=== PATIENT | female | born 1990 | race African-American/Black ===

== ENCOUNTER 2016-12-26 19:55 | Emergency (ER) | payer OTHER ==
[2016-12-26 20:35] VITALS: BP 151/64
[2016-12-26] MEDS ORDERED: IBUPROFEN 600 MG TABLET. PO ONE (20:45)
[2016-12-26] MEDS ORDERED: HYDROCODONE/APAP 5/325MG TABLET. PO ONE (20:45)
--- NOTE | 2016-12-26 21:16 | PHYS DOC ---
Past Medical History Past Medical History: No Pertinent History Past Surgical History: Cholecystectomy Additional Information: 11/15 ppd Alcohol Use: Occasionally Drug Use: None Adult General Chief Complaint Chief Complaint: KNEE INJURY HPI HPI Patient is a 26 year old female presents the emergency room today with complaint of left knee pain after slip and fall approximately 1 hour prior to arrival. Patient denies any history of problems with her left knee. She denies any history of bone forming disorders. Review of Systems Review of Systems Constitutional: Denies fever or chills [] Eyes: Denies change in visual acuity, redness, or eye pain [] HENT: Denies nasal congestion or sore throat [] Respiratory: Denies cough or shortness of breath [] Cardiovascular: No additional information not addressed in HPI [] GI: Denies abdominal pain, nausea, vomiting, bloody stools or diarrhea [] : Denies dysuria or hematuria [] Musculoskeletal: Denies back pain or joint pain [] Integument: Denies rash or skin lesions [] Neurologic: Denies headache, focal weakness or sensory changes [] Endocrine: Denies polyuria or polydipsia [] Current Medications Current Medications Current Medications Medications (Trade) Dose Ordered Sig/Abbey Start Time Stop Time Status Last Admin Dose Admin Acetaminophen/ Hydrocodone Bitart (Lortab 5/325) 1 tab 1X ONCE 12/26/16 20:45 12/26/16 20:47 DC 12/26/16 20:50 1 TAB Ibuprofen (Motrin) 600 mg 1X ONCE 12/26/16 20:45 12/26/16 20:47 DC 12/26/16 20:50 600 MG Allergies Allergies Allergies Coded Allergies Type Severity Reaction Last Updated Verified No Known Drug Allergies 12/26/16 No Physical Exam Physical Exam Constitutional: Well developed, well nourished, no acute distress, non-toxic appearance. [] HENT: Normocephalic, atraumatic, bilateral external ears normal, oropharynx moist, no oral exudates, nose normal. [] Eyes: PERRLA, EOMI, conjunctiva normal, no discharge. [] Neck: Normal range of motion, no tenderness, supple, no stridor. [] Cardiovascular:Heart rate regular rhythm, no murmur [] Lungs & Thorax: Bilateral breath sounds clear to auscultation [] Abdomen: Bowel sounds normal, soft, no tenderness, no masses, no pulsatile masses. [] Skin: Warm, dry, no erythema, no rash. [] Back: No tenderness, no CVA tenderness. [] Extremities: Left knee is normal in appearance. There is no fusiform swelling or erythema. There are no overlying abrasions or skin injuries. Flexor and extensor mechanism are intact. There is no high riding patella. There is tenderness to palpation to lateral aspect of the patella and the lateral joint line. There is no palpable defect or deformity. There is no instability or crepitus. Ligaments are stable solid endpoints. Left lower extremity is neurovascular intact with capillary refill less than 2 seconds. Neurologic: Alert and oriented X 3, normal motor function, normal sensory function, no focal deficits noted. [] Psychologic: Affect normal, judgement normal, mood normal. [] Current Patient Data Vital Signs Vital Signs Date Time Temp Pulse Resp B/P Pulse Ox O2 Delivery O2 Flow Rate FiO2 12/26/16 20:35 98.3 113 18 97 Room Air 98.3 EKG EKG [] Radiology/Procedures Radiology/Procedures 3 views patient's left knee were performed with adequate technique. There is no evidence of acute process. Course & Med Decision Making Course & Med Decision Making Pertinent Labs and Imaging studies reviewed. (See chart for details) [] Dragon Disclaimer Dragon Disclaimer This electronic medical record was generated, in whole or in part, using a voice recognition dictation system. Departure Departure Impression: Primary Impression: Strain of left knee Disposition: 01 HOME, SELF-CARE Condition: GOOD Referrals: CYNTHIA CARIAS (PCP) Patient Instructions: Knee Sprain, [id number] Additional Instructions: 1. X-rays of your left knee today are normal. 2. Take the medication as prescribed. 3. Avoid deep knee bending, kneeling and squatting for the next week. 4. Review the discharge instructions provided for self-care and reasons to return to the emergency department. 5. Contact your primary care doctor's office in the morning to schedule follow- up appointment. Scripts Hydrocodone/Apap 5-325 ([place] 5-325 Tablet)1 Each Tablet1 Tab PO PRN Q6HRS PRN breakthrough pain #10 TAB Prov:KARAN SALAS 12/26/16 Naproxen Sodium (Anaprox Ds)550 Mg [id number] Mg PO twice a day left knee pain # 20 Prov:KARAN SALAS 12/26/16 KARAN SALAS Dec 26, 2016 21:17
[2016-12-26] MEDS ORDERED: HYDR-971 PO (21:35)
[2016-12-26] MEDS ORDERED: NAPR550T PO (21:35)
--- NOTE | 2016-12-27 09:11 | RAD ---
Left knee, 3 views, 12/26/2016: History: Fall, pain No fracture or dislocation is identified. No joint effusion is seen. IMPRESSION: No acute left knee abnormality is detected.
== END 2016-12-26 21:50 | disposition home or self-care (01) ==
LOC: ER 19:55
DX: S86.812A Strain of other muscle(s) and tendon(s) at lower leg level, left leg, initial encounter (principal); F17.200 Nicotine dependence, unspecified, uncomplicated; Z90.49 Acquired absence of other specified parts of digestive tract; W01.0XXA Fall on same level from slipping, tripping and stumbling without subsequent striking against object, initial encounter; Y93.89 Activity, other specified; Y92.89 Other specified places as the place of occurrence of the external cause; Y99.8 Other external cause status
CPT/HCPCS: 73562; 99284

== ENCOUNTER 2017-11-26 10:48 | Emergency (ER) | payer MEDICAID, OTHER ==
[2017-11-26 11:13] LABS: URINE HCG POC HCG POSITIVE (Negative)
[2017-11-26 11:43] LABS: BILIRUBIN,URINE NEGATIVE (NEG); COLOR,URINE YELLOW; GLUCOSE,URINE NEGATIVE (NEG); NITRITE,URINE NEGATIVE (NEG); PH,URINE 7.5; PROTEIN,URINE NEGATIVE (NEG-TRACE)
[2017-11-26 11:56] LABS: BACTERIA,URINE MANY /HPF (0-FEW); CLARITY,URINE HAZY; RBC,URINE OCC /HPF (0-2); SQUAMOUS EPITHELIAL CELL,UR MANY /LPF; WBC,URINE 20-40 /HPF (0-4)
[2017-11-26] MEDS: IV NORMAL SALINE 1000ML BAG 1,000 ML IV (12:15)
[2017-11-26 12:28] LABS: ADD MAN DIFF? NO
[2017-11-26 12:36] LABS: BASO # 0.1 x10^3/uL (0.0-0.2); BASO % 1 % (0-3); EOS # 0.4 x10^3/uL (0.0-0.7); EOS % 4 % (0-3); HEMATOCRIT 41.6 % (36.0-47.0); HEMOGLOBIN 13.9 g/dL (12.0-15.5); LYMPH # 3.3 x10^3/uL (1.0-4.8); LYMPH % 28 % (24-48); MEAN CORPUSCULAR HEMOGLOBIN 29 pg (25-35); MEAN CORPUSCULAR HGB CONC 33 g/dL (31-37); MEAN CORPUSCULAR VOLUME 86 fL (79-100); MONO # 0.8 x10^3/uL (0.0-1.1); MONO % 7 % (0-9); NEUT # 7.1 x10^3uL (1.8-7.7); NEUT % 61 % (31-73); PLATELET COUNT 296 x10^3/uL (140-400); RED BLOOD COUNT 4.82 x10^6/uL (3.50-5.40); WHITE BLOOD COUNT 11.8 x10^3/uL (4.0-11.0)
[2017-11-26] MEDS: CEPHALEXIN 250 MG CAPSULE. PO (12:42)
[2017-11-26 12:50] LABS: ANION GAP 9 (6-14); BLOOD UREA NITROGEN 12 mg/dL (7-20); BUN/CREATININE RATIO 15 (6-20); CALCIUM 8.4 mg/dL (8.5-10.1); CARBON DIOXIDE 28 mmol/L (21-32); CHLORIDE 104 mmol/L (98-107); CREATININE 0.8 mg/dL (0.6-1.0); GFR 104.1; GLUCOSE 79 mg/dL (70-99); POTASSIUM 4.2 mmol/L (3.5-5.1); SODIUM 141 mmol/L (136-145)
[2017-11-26 12:55] LABS: ALBUMIN 3.4 g/dL (3.4-5.0); ALK PHOS 89 U/L (46-116); ALT (SGPT) 34 U/L (14-59); AST (SGOT) 23 U/L (15-37); MAGNESIUM 2.2 mg/dL (1.8-2.4); TOTAL BILIRUBIN 0.5 mg/dL (0.2-1.0); TOTAL PROTEIN 6.9 g/dL (6.4-8.2)
[2017-11-28 19:16] LABS: CHLAMYDIA PROBE Negative (Negative); GC PROBE Negative (Negative)
== END 2017-11-26 15:38 | disposition home or self-care (01) ==
LOC: ER 10:48
DX: O23.41 Unspecified infection of urinary tract in pregnancy, first trimester (principal); O99.211 Obesity complicating pregnancy, first trimester; E66.9 Obesity, unspecified; Z68.38 Body mass index [BMI] 38.0-38.9, adult; Z3A.01 Less than 8 weeks gestation of pregnancy
CPT/HCPCS: 36415; 76801; 80053; 81001; 81025; 83735; 84702; 85025; 86850; 86900; 86901; 87086; 87491; 87591; 96360; 99285-25; J7030; Q0111